=== PATIENT | female | born 1950 | race Two or more races ===

== ENCOUNTER 2017-06-04 22:58 | Emergency (ER) | payer OTHER ==
[~2017-06-04] VITALS: Ht 144.8 cm; Wt 77.3 kg
[2017-06-05 00:56] VITALS: BP 120/77
[2017-06-05 10:01] LABS: GLUCOSE,POINT OF CARE 125 MG/DL (70-110)
== END 2017-06-05 01:12 | disposition home or self-care (01) ==
LOC: EMS 23:01
DX: F32.9 Major depressive disorder, single episode, unspecified (principal); E11.9 Type 2 diabetes mellitus without complications; I10 Essential (primary) hypertension; Z88.0 Allergy status to penicillin
CPT/HCPCS: 82962; 99284